=== PATIENT | male | born 1960 | race Caucasian/White ===

== ENCOUNTER → 2016-06-29 | Outpatient (CLI) | payer BC | LOC: BMCIMAGING 07:34 | PROVIDERS: ATTEND Internal Medicine Gastroenterology | DX: Z13.89 Encounter for screening for other disorder (principal); K80.20 Calculus of gallbladder without cholecystitis without obstruction ==

== ENCOUNTER → 2017-07-16 | Outpatient (CLI) | payer BC | LOC: BRMIMAGING 07:44 | PROVIDERS: ATTEND Internal Medicine Gastroenterology | DX: K74.60 Unspecified cirrhosis of liver (principal); K80.20 Calculus of gallbladder without cholecystitis without obstruction | CPT/HCPCS: 76705-PO ==